=== PATIENT | female | born 1985 | race Caucasian/White ===

== ENCOUNTER 2017-04-25 09:56 | Emergency (ER) | payer OTHER ==
[2017-04-25 10:09] VITALS: BP 118/76
--- NOTE | 2017-04-25 10:49 | ED Physician Documentation ---
PD HPI LOWER EXT INJURY - Stated complaint Stated Complaint: FT PX - Chief complaint Chief Complaint: General - History obtained from History obtained from: Patient - History of Present Illness PD HPI LOW EXT INJURY LOCATION: Left, Foot Type of injury: Fall Where injury occurred: Work Timing - onset: Yesterday Timing - duration: Days (1) Timing - details: Abrupt onset, Still present Improved by: Rest, Immobilization Worsened by: Moving, Palpating Associated symptoms: No: Weakness, Numbness, Tingling, Swelling Contributing factors: No: Anticoagulated Similar symptoms before: Has not had sx before Recently seen: Not recently seen - Additional information Additional information: 32-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 She landed on her right foot and has pain over the metatarsals on the right foot. She is able to walk on her heel she was able to sleep last night and states that she had some relief of her pain with the use of ibuprofen. Review of Systems Constitutional: denies: Fever Eyes: denies: Decreased vision Ears: denies: Ear pain Nose: denies: Congestion Respiratory: denies: Cough GI: denies: Vomiting Skin: denies: Rash Musculoskeletal: reports: Extremity pain, Joint pain, Pain with weight bearing. denies: Neck pain, Back pain Neurologic: denies: Generalized weakness, Focal weakness, Numbness PD PAST MEDICAL HISTORY - Past Medical History Past Medical History: No - Past Surgical History Past Surgical History: Yes - Allergies Allergies/Adverse Reactions: Allergies Allergy/AdvReac Type Severity Reaction Status Date / Time No Known Drug Allergies Allergy Verified 04/25/17 10:08 - Social History Does the pt smoke?: No Smoking Status: Never smoker Does the pt drink ETOH?: Yes Does the pt have substance abuse?: No - Immunizations Immunizations are current?: Yes - POLST Patient has POLST: No PD ED PE NORMAL - Vitals Vital signs reviewed: Yes (normal ) - General General: No acute distress, Well developed/nourished - HEENT HEENT: Atraumatic, PERRL - Respiratory Respiratory: No respiratory distress - Derm Derm: Normal color, Warm and dry, No rash - Extremities Extremities: No deformity, No edema, Other (There is tenderness to the dorsal surface of the left foot over the 1st and 2nd MT distal N/v intact. ) - Neuro Neuro: No motor deficit, No sensory deficit - Psych Psych: Normal mood, Normal affect Results - Vitals Vitals: Vital Signs - 24 hr 04/25/17 10:03 Temperature 36.6 C Heart Rate 60 Respiratory 16 Rate Blood Pressure 118/76 O2 Saturation 100 Oxygen O2 Source Room air - Rads (name of study) Left foot Radiology: Prelim report reviewed (Impression: Negative foot radiography.), EMP read indepedently, See rad report PD MEDICAL DECISION MAKING - ED course Complexity details: reviewed results, re-evaluated patient, considered differential, d/w patient ED course: 32 y/o female with a left foot contusion has no evidence of fracture on x-ray. She will need to be off of her foot for 2-5 days and up to 14 days. Departure - Departure Disposition: 01 Home, Self Care Clinical Impression: Contusion of left foot, initial encounter Qualifiers: Encounter type: initial encounter Qualified Code(s): S90.32XA - Contusion of left foot, initial encounter Instructions: ED Contusion Foot Follow-Up: [facility] [Provider Group] Forms: Activity restrictions Discharge Date/Time: 04/25/17 11:05
--- NOTE | 2017-04-25 10:58 | XRAY Preliminary Report ---
Exam: XR Foot 3 View LT IMPRESSION: Negative foot radiography. [facility] SITE ID: [id number]
--- NOTE | 2017-04-25 11:00 | XRAY Report ---
EXAM: LEFT FOOT RADIOGRAPHY EXAM DATE: 04/25/2017 10:29 AM. CLINICAL HISTORY: MT pain contusion . COMPARISON: None. TECHNIQUE: 3 views. FINDINGS: Bones: Normal. No fractures or bone lesions. Joints: Normal. No subluxations. Soft Tissues: Normal. No soft tissue swelling. IMPRESSION: Negative foot radiography. [facility] Referring Provider Line: [phone] SITE ID: [id number]
== END 2017-04-25 11:05 | disposition home or self-care (01) ==
LOC: ED 09:56
DX: S90.32XA Contusion of left foot, initial encounter (principal); X50.1XXA Overexertion from prolonged static or awkward postures, initial encounter; Y99.0 Civilian activity done for income or pay
CPT/HCPCS: 99283

== ENCOUNTER 2017-06-30 15:21 | Emergency (ER) | payer OTHER ==
--- NOTE | 2017-06-30 15:50 | ED Physician Documentation ---
PD HPI ABD PAIN - Stated complaint Stated Complaint: 9WKS PREG/BLEEDING/CRAMPING - Chief complaint Chief Complaint: Abd Pain - History obtained from History obtained from: Patient, Family - History of Present Illness Timing - onset: Other ( at 9 weeks with unknown blood type presents with light cramping and bleeding since yesterday.) Review of Systems Constitutional: reports: Reviewed and negative Cardiac: reports: Reviewed and negative Respiratory: reports: Reviewed and negative PD PAST MEDICAL HISTORY - Past Surgical History Past Surgical History: Yes - Present Medications Home Medications: Ambulatory Orders Medication Instructions Recorded Confirmed No Known Home Medications [No 06/30/17 06/30/17 Known Home Medications] - Allergies Allergies/Adverse Reactions: Allergies Allergy/AdvReac Type Severity Reaction Status Date / Time No Known Drug Allergies Allergy Verified 06/30/17 15:26 - Social History Does the pt smoke?: No Smoking Status: Never smoker Does the pt drink ETOH?: Yes Does the pt have substance abuse?: No - Immunizations Immunizations are current?: Yes - POLST Patient has POLST: No PD ED PE NORMAL - Vitals Vital signs reviewed: Yes - General General: Alert and oriented X 3, No acute distress - Neck Neck: Supple, no meningeal sign, No bony TTP - Respiratory Respiratory: No respiratory distress, Clear bilaterally - Abdomen Abdomen: Normal bowel sounds, Soft, Non tender - Female Female : Other (bedisde sono with IUP but no FHT) - Neuro Neuro: Alert and oriented X 3, Normal speech - Psych Psych: Normal mood, Normal affect Results - Vitals Vitals: Vital Signs - 24 hr 06/30/17 15:23 Temperature 37.0 C Heart Rate 75 Respiratory 16 Rate Blood Pressure 116/64 O2 Saturation 99 Oxygen O2 Source Room air - Labs Labs: Laboratory Tests 06/30/17 16:05 Blood Type O POSITIVE - Rads (name of study) Pelvic sono Radiology: EMP read contemporaneously (Single IUP with absent cardiac activity) PD MEDICAL DECISION MAKING - ED course ED course: at 9 weeks with apparent intrauterine demise.The patient and family were counseled as to the diagnosis and need for follow-up. I counseled the patient with regard to signs and symptoms that would necessitate an urgent reevaluation in the emergency department. They understand they are welcome to return at any time if worse or if not improving as expected. This document was made in part using voice recognition software. While efforts are made to proofread this documents, sound alike and grammatical errors may occur. Departure - Departure Disposition: 01 Home, Self Care Clinical Impression: IUFD at less than 20 weeks of gestation Condition: Good Record reviewed to determine appropriate education?: Yes Instructions: ED Miscarriage Inevitable Follow-Up: Corie Valentin CNM, LABEL MAKER [Primary Care Provider] - Within 3 Days
--- NOTE | 2017-06-30 17:55 | Ultrasound Preliminary Report ---
Exam: US OB FIRST TRIMESTER IMPRESSION: 1. Single intrauterine 9 weeks 0 day intrauterine gestation with absent cardiac activity indicating f etal demise. [facility] SITE ID: [id number]
--- NOTE | 2017-06-30 17:57 | Ultrasound Report ---
EXAM: FIRST TRIMESTER OBSTETRIC ULTRASOUND (Less than 11 weeks) EXAM DATE: 06/30/2017 05:29 PM. 9CLINICAL HISTORY: Pelvic cramping/bleeding 9w. LMP: Unknown. COMPARISONS: None. TECHNIQUE: Transabdominal and transvaginal ultrasound examination with static image documentation. CLINICAL DATES: EGA 9 weeks 6 days with OSCAR 01/27/2018 based on stated dates. ASSESSMENT: Gestational Sac: Single intrauterine. Mean gestational sac diameter: 42 mm = 9 weeks 5 days. Embryo: CRL (crown-rump length) 23 mm = 9 weeks 0 days. Cardiac activity: 0 beats per minute. Yolk sac: 5.1 mm. Amniotic fluid: Not accurately assessed at this gestational age. Early placenta: Not visible at this gestational age. Other: No perigestational fluid collection demonstrated. MATERNAL STRUCTURES: Uterus: Anteverted. Unremarkable. Cervix: Closed. Right Ovary/Adnexa: Not seen Left Ovary/Adnexa: Contains a 1.7 x 1.0 x 1.5 cm simple cyst. The ovary measures 2.0 x 1.3 x 2.1 cm. Free Fluid: None. Other: None. IMPRESSION: 1. Single intrauterine 9 weeks 0 day intrauterine gestation with absent cardiac activity indicating f etal demise. [facility] Referring Provider Line: [phone] SITE ID: [id number]
[2017-06-30 18:21] LABS: BILIRUBIN,URINE NEGATIVE (NEGATIVE); PH,URINE 6.5 PH (5.0-7.5)
[2017-06-30 18:24] LABS: UA CHARGE (STRIP ONLY) YES; UR CULTURE IF IND NOT INDICATED
[2017-06-30 18:29] VITALS: BP 135/87
== END 2017-06-30 18:12 | disposition home or self-care (01) ==
LOC: ED 15:21
DX: O36.4XX0 Maternal care for intrauterine death, not applicable or unspecified (principal); Z3A.09 9 weeks gestation of pregnancy
CPT/HCPCS: 36415; 76801; 76817; 80053; 81001; 81003; 83690; 84702; 85025; 86900; 86901; 87086; 99283

== ENCOUNTER 2017-10-21 08:20 | Emergency (ER) | payer OTHER ==
[2017-10-21 08:28] VITALS: BP 136/72
--- NOTE | 2017-10-21 08:39 | ED Physician Documentation ---
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 She has some swelling over the bridge of the nose she had some bleeding associated with this which rapidly resolved and she has no other specific symptoms now. She does not have any significant cosmetic deformity with the swelling. She did not have any loss of consciousness. Review of Systems Constitutional: denies: Fever Eyes: denies: Decreased vision Ears: denies: Ear pain Nose: reports: Epistaxis, Sinus pressure / pain. denies: Rhinorrhea / runny nose, Congestion Throat: denies: Sore throat Respiratory: denies: Dyspnea, Cough GI: denies: Nausea, Vomiting PD PAST MEDICAL HISTORY - Past Surgical History Past Surgical History: Yes - Present Medications Home Medications: Ambulatory Orders Medication Instructions Recorded Confirmed No Known Home Medications [No 06/30/17 10/21/17 Known Home Medications] - Allergies Allergies/Adverse Reactions: Allergies Allergy/AdvReac Type Severity Reaction Status Date / Time No Known Drug Allergies Allergy Verified 10/21/17 08:27 - Social History Does the pt smoke?: No Smoking Status: Never smoker Does the pt drink ETOH?: Yes Does the pt have substance abuse?: No - Immunizations Immunizations are current?: Yes - POLST Patient has POLST: No PD ED PE NORMAL - Vitals Vital signs reviewed: Yes (normal ) - General General: Alert and oriented X 3, No acute distress, Well developed/nourished - HEENT HEENT: PERRL, EOMI, Other (There is a tiny red bump over the nasal bridge and some swelling to the nasal bridge. There is no epistaxis and no midline deviation. 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, No motor deficit, No sensory deficit, Normal speech Eye Opening: Spontaneous Motor: Obeys Commands Verbal: Oriented GCS Score: 15 - Psych Psych: Normal mood, Normal affect Results - Vitals Vitals: Vital Signs - 24 hr 10/21/17 08:23 Temperature 36.9 C Heart Rate 71 Respiratory 16 Rate Blood Pressure 136/72 H O2 Saturation 99 Oxygen O2 Source Room air PD MEDICAL DECISION MAKING - ED course Complexity details: considered differential, d/w patient, d/w family ED course: 32-year-old female with a nasal bridge contusion without significant deformity is given instructions to return for imaging should she have cosmetic deformity when the swelling is resolved. Departure - Departure Disposition: 01 Home, Self Care Clinical Impression: Contusion of nose, initial encounter Condition: Stable Instructions: ED Contusion Nasal Vs Fx No X Ray Follow-Up: Corie Valentin, AUBREY, [employer]IST [employer]PPLIES SALESPERSON [Primary Care Provider] -
== END 2017-10-21 09:15 | disposition home or self-care (01) ==
LOC: ED 08:20
DX: S00.33XA Contusion of nose, initial encounter (principal); W01.198A Fall on same level from slipping, tripping and stumbling with subsequent striking against other object, initial encounter; Y93.01 Activity, walking, marching and hiking; Y99.0 Civilian activity done for income or pay
CPT/HCPCS: 1040M; 99282

== ENCOUNTER 2018-01-14 12:00 | Outpatient (CLI) | payer OTHER | END 2018-01-14 12:01 | disposition home or self-care (01) | LOC: LAB.R 12:00 | PROVIDERS: ATTEND Registered Nurse | DX: Z36.9 Encounter for antenatal screening, unspecified (principal) | CPT/HCPCS: 87491; 87591 ==

== ENCOUNTER 2018-02-06 08:00 | Outpatient (CLI) | payer OTHER | END 2018-02-06 08:01 | disposition home or self-care (01) | LOC: LAB.R 08:00 | PROVIDERS: ATTEND Registered Nurse | DX: R31.9 Hematuria, unspecified (principal) | CPT/HCPCS: 87086 ==

== ENCOUNTER 2018-03-08 09:52 | Outpatient (CLI) | payer SELFPAY | END 2018-03-08 09:53 | disposition home or self-care (01) | LOC: LAB 09:52 | PROVIDERS: ATTEND Registered Nurse | DX: Z13.79 Encounter for other screening for genetic and chromosomal anomalies (principal) | CPT/HCPCS: 36415 ==

== ENCOUNTER 2018-05-02 12:47 | Outpatient (CLI) | payer OTHER ==
--- NOTE | 2018-05-02 15:39 | Ultrasound Report ---
Reason: ENCOUNTER FOR SCREENING FOR MALFORMATION Procedure Date: 05/02/2018 Accession Number: [id number] / [id number] Procedure: US - OB Detailed Eval CPT Code: FULL RESULT: EXAM: COMPLETE OBSTETRICAL ULTRASOUND EXAM DATE: 05/02/2018 02:59 PM. CLINICAL HISTORY: anatomic survey. COMPARISON: None. TECHNIQUE: Real-time sonographic evaluation of the fetus performed by the yellow pages space salesperson. Multiple retail account representative static images were saved for review. DATING: LMP: Unsure. EGA 23 weeks, 1 day with OSCAR 08/28/2018 based on the current ultrasound. GENERAL EVALUATION [place] . Cardiac activity: 148 bpm. movement: Within normal limits. Presentation: Variable. Placenta: Anterior position. No evidence for previa. Umbilical cord: 3 vessel cord. Placental/cervix: Normal. Cord origin: Central (greater or equal to 2 cm from placental edge). Amniotic fluid: Subjectively normal. MVP 5.8 cm. BIOMETRY Bi-Parietal Diameter (BPD): 5.6 cm, 23 weeks, 0 days Head Circumference (HC): 21.2 cm, 23 weeks, 2 days Abdominal Circumference (AC): 18. cm, 23 weeks, 1 day Femur Length (FL): 4.1 cm, 23 weeks, 2 days Estimated Weight: 574 gm. ANATOMY Left ventricular echogenic foci are identified within the heart. The cardiac anatomy including outflow tracts is otherwise normal. The intracranial structures, profile, face/nose/lips, spine, stomach, abdominal wall and cord insertion, diaphragm, kidneys, bladder, and extremities were visualized and demonstrate no abnormality. MATERNAL STRUCTURES Uterus: Unremarkable. Cervix: Long and closed. Transabdominal length 5.8 cm. Right ovary/adnexa: Unremarkable. Left ovary/adnexa: Unremarkable. Free fluid: None. IMPRESSION: 1. [place] live intrauterine with gestational age 23 weeks 1 day based on current ultrasound. 2. One or more soft markers for aneuploidy is detected. Recommend correlation with maternal age, ethnicity, and aneuploidy risk assessment results such as serum screening or cell free DNA testing to help guide further management. [facility]
== END 2018-05-02 12:48 | disposition home or self-care (01) ==
LOC: DI 12:47
PROVIDERS: ATTEND Registered Nurse
DX: Z36.3 Encounter for antenatal screening for malformations (principal)
CPT/HCPCS: 76811

== ENCOUNTER 2018-06-14 12:31 | Outpatient (CLI) | payer OTHER ==
[2018-06-14 13:51] LABS: BASOPHILS % (AUTO) 0.3 %; EOSINOPHILS # (AUTO) 0.2 10^3/uL (0.0-0.7); EOSINOPHILS % (AUTO) 1.6 %; HGB - HEMOGLOBIN 11.4 g/dL (12.0-16.0); LYMPHOCYTES # (AUTO) 1.2 10^3/uL (1.5-3.5); LYMPHOCYTES % (AUTO) 9.5 %; MEAN CORPUSCULAR HEMOGLOBIN 31.3 pg (27.0-31.0); MEAN CORPUSCULAR HGB CONC 34.5 g/dL (32.0-36.0); MEAN CORPUSCULAR VOLUME 90.8 fL (81.0-99.0); MEAN PLATELET VOLUME 9.1 fL (7.9-10.8); MONOCYTES # (AUTO) 0.9 10^3/uL (0.0-1.0); NEUTROPHILS # (AUTO) 10.2 10^3/uL (1.5-6.6); NEUTROPHILS % (AUTO) 81.6 %; PLT - PLATELET COUNT 154 10^3/uL (130-450); RED BLOOD COUNT 3.64 10^6/uL (4.20-5.40); RED CELL DISTRIBUTION WIDTH 12.7 % (12.0-15.0); WHITE BLOOD COUNT 12.5 x10^3/uL (4.8-10.8)
== END 2018-06-14 12:32 | disposition home or self-care (01) ==
LOC: LAB 12:31
PROVIDERS: ATTEND Registered Nurse
DX: Z34.82 Encounter for supervision of other normal pregnancy, second trimester (principal)
CPT/HCPCS: 36415; 82950; 85025; 86850

== ENCOUNTER 2018-08-12 15:59 | Outpatient (CLI) | payer OTHER | END 2018-08-12 23:59 | disposition home or self-care (01) | LOC: LAB.R 15:59 | PROVIDERS: ATTEND Nurse Practitioner Obstetrics & Gynecology | DX: Z36.85 Encounter for antenatal screening for Streptococcus B (principal); Z11.3 Encounter for screening for infections with a predominantly sexual mode of transmission | CPT/HCPCS: 87081; 87491; 87591 ==

== ENCOUNTER 2018-08-19 14:48 | Outpatient (CLI) | payer OTHER ==
[2018-08-19 15:03] VITALS: BP 122/69
== END 2018-08-19 15:25 | disposition home or self-care (01) ==
LOC: WFO 14:48 → FBP 14:51 → WFO 15:25
PROVIDERS: ATTEND Nurse Practitioner Obstetrics & Gynecology
DX: O36.8130 Decreased fetal movements, third trimester, not applicable or unspecified (principal); Z3A.37 37 weeks gestation of pregnancy
CPT/HCPCS: 59025

== ENCOUNTER 2018-08-29 03:19 | Inpatient (IN) | payer OTHER ==
[2018-08-29] MEDS ORDERED: SODIUM CHLORIDE FLUSH 0.9% 10 ML SYRINGE ONE (03:34)
[2018-08-29] MEDS ORDERED: OXYTOCIN/SODIUM CHLORIDE 500 ML IV ONE (03:35)
[2018-08-29] MEDS ORDERED: SODIUM CHLORIDE FLUSH 0.9% 10 ML SYRINGE IVP PRN (03:47)
[2018-08-29] MEDS ORDERED: LACTATED RINGERS 1,000 ML IV SCH (04:00)
[2018-08-29 04:32] LABS: BASOPHILS # (AUTO) 0.1 10^3/uL (0.0-0.1); BASOPHILS % (AUTO) 0.6 %; EOSINOPHILS # (AUTO) 0.1 10^3/uL (0.0-0.7); EOSINOPHILS % (AUTO) 0.6 %; HGB - HEMOGLOBIN 11.3 g/dL (12.0-16.0); LYMPHOCYTES # (AUTO) 2.6 10^3/uL (1.5-3.5); LYMPHOCYTES % (AUTO) 21.8 %; MEAN CORPUSCULAR HEMOGLOBIN 28.8 pg (27.0-31.0); MEAN CORPUSCULAR VOLUME 84.7 fL (81.0-99.0); MEAN PLATELET VOLUME 10.7 fL (7.9-10.8); MONOCYTES # (AUTO) 0.9 10^3/uL (0.0-1.0); MONOCYTES % (AUTO) 7.6 %; NEUTROPHILS # (AUTO) 8.1 10^3/uL (1.5-6.6); NEUTROPHILS % (AUTO) 69.4 %; PLT - PLATELET COUNT 161 10^3/uL (130-450); RED BLOOD COUNT 3.91 10^6/uL (4.20-5.40); RED CELL DISTRIBUTION WIDTH 13.6 % (12.0-15.0); WHITE BLOOD COUNT 11.7 x10^3/uL (4.8-10.8)
--- NOTE | 2018-08-29 04:45 | HISTORY & PHYSICAL EXAMINATION ---
Admit History - Visit Reason Visit Reason: Contractions (starting @ 2300, progressively strong since 0200) - : 4 Parity: 2 Premature: 0 Ectopic: 0 : 1 Care: positive: [facility] Risk/History: positive: None Complications This : positive: None Smoking Status: Never smoker - Mother's Labs Mother's Blood Type: positive: O Mother's RH: positive: Positive GBS: positive: Group B Step Negative Rubella Status: positive: Immune Meds/Allgy - Home Medications Home Medications: Ambulatory Orders Medication Instructions Recorded Confirmed No Known Home Medications 06/30/17 10/21/17 - Allergies Allergies/Adverse Reactions: Allergies Allergy/AdvReac Type Severity Reaction Status Date / Time No Known Drug Allergies Allergy Verified 10/21/17 08:27 Review of Systems - Constitutional Constitutional: denies: Fatigue, Fever, Chills - Eyes Eyes: denies: Blurred vision - Cardiovascular Cariovascular: denies: Irregular heart rate, Palpitations, Chest pain - Respiratory Respiratory: denies: Cough - Gastrointestinal Gastrointestinal: reports: Abdominal pain, Reflux/heartburn. denies: Constipation, Diarrhea, Nausea, Vomiting - Genitourinary Genitourinary: reports: Frequency. denies: Dysuria, Urgency - Musculoskeletal Musculoskeletal: denies: Muscle pain, Back pain, Muscle aches, Stiffness - Integumentary Integumentary: denies: Rash, Pruritis, Lesions - Neurological Neurological: denies: General weakness, Focal weakness, Headache, Numbness - Psychiatric Psychiatric: denies: Depression, Anxiety - All Other Systems All Other Systems: reports: Reviewed and negative Physical - Abdominal Exam Vital Signs: Temp Pulse Resp BP Pulse Ox 36.3 C L 60 120/63 08/29/18 03:35 08/29/18 03:54 08/29/18 03:54 Contraction Frequency (min/apart): 2 Contraction Intensity: positive: Strong Uterine Resting Tone: positive: Soft - Monitoring Heart Rate Baseline: 135 Strip Review: positive: Category I - Presentation Presentation: positive: Vertex - Vaginal Exam Membranes: positive: Membranes ruptured (@ 0350 for CAF) Dilation (in cm): 10 Effacement (%): 100 Station: positive: 2 Cervical Position: positive: Anterior - Speculum Exam Speculum Exam Performed: positive: No Findings: positive: Gross leak - Other Notes Labor Progress Note/Additional Text: Jamie Sommer is a 33 y/o who received consistent care beginning in the early 1st trimester & had an essentially uncomplicated course. Her labs were all WNL & she screened negative for GBS. She presented this evening w/ a complaint of contractions & was 5cm on arrival. She SROMed shortly after evaluation @ 0350 & progressed rapidly to complete dilatation over the course of 30 minutes. See delivery note for details. 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
[2018-08-29] MEDS ORDERED: HYDROCORTISONE/PRAMOXINE 10 GM PR PRN (04:57)
[2018-08-29] MEDS ORDERED: MAGNESIUM HYDROXIDE 2,400 MG/30 ML UDC PO PRN (04:57)
[2018-08-29] MEDS ORDERED: WITCH HAZEL/GLYCERIN 1 EACH MED..PAD TOP PRN (04:57)
[2018-08-29] MEDS ORDERED: HYDROCORTISONE 1% CREAM 28 GM TUBE PR PRN (04:57)
--- NOTE | 2018-08-29 04:57 | DELIVERY NOTE ---
Delivery Note - Labor Labor: positive: Spontaneous - Delivery Method Delivery Method: positive: Spontaneous vaginal delivery - Presentation Presentation: positive: Vertex, MICHELLE - right occiput anterior - Nuchal Cord Nuchal Cord: positive: None - Anesthetic Anesthetic Type: - Amniotic Fluid Description Amniotic Fluid Description: positive: Clear - Episiotomy Type Episiotomy Type: positive: None - Laceration Laceration: positive: None - Delivery Outcome Delivery Outcome: positive: Livebirth - [place] : positive: Placed in direct skin contact with mother, Stimulated, Warmed, [place] used [place] sex: positive: Male - Cord Cord: positive: 3 vessels - Placenta Placenta: positive: Intact, Spontaneous - Estimated Blood Loss Estimated Blood Loss (in cc): 150 - Post Delivery Events Post Delivery Events: positive: No post delivery events - Delivery Comments (Free Text/Narrative) Delivery Comments (Free Text/Narrative): Jamie Sommer is a 33 y/o [id number] who presented @ 39w1d in active, spontaneous labor @ 5cm dilatation. She SROM'ed for CAF 5 minutes s/p arrival, @ 0350 and progressed spontaneously from there to complete dilatation w/ spontaneous urge to push @ 0420, for a total first stage duration of 5 hours, 20 minutes. FHTs monitored electronically & consistently cat I. Began pushing w/ spontaneous u rge @ 0422 to achieve viable male in MICHELLE position over intact perineum @ 0427, for a total 2nd stage duration of 7 minutes. Infant vigorous w/ spontaneous, lusty cry. Placed to maternal abd for drying/stim. Delayed cord clamping until cessation of pulsation, then cord clamped x2 by CNM, cut by FOB. 3VC noted, cord blood obtained. Active management of the 3rd stage w/ Pitocin in IV fluids. Placenta del spont & intact, Tramaine, @ 0433, for a total 3rd stage duration of 6 minutes. FF @ U. Vagina & perineum inspected & found to be intact. EBL 150mL. Mother & stable. Apgars 9/9. Weight pending. nuzzling @ breast w/in 15 minutes of delivery; intends to breastfeed & has had 2 previously successful experiences.
[2018-08-29] MEDS: IBUPROFEN 800 MG TABLET PO SCH ×3 (06:28→17:31)
[2018-08-29] MEDS: ACETAMINOPHEN 500 MG TABLET PO SCH ×3 (06:29→20:18)
[2018-08-29] MEDS ORDERED: SODIUM CHLORIDE FLUSH 0.9% 10 ML SYRINGE IVP SCH (09:00)
[2018-08-29] MEDS: DOCUSATE SODIUM 100 MG CAPSULE PO SCH ×2 (10:14→20:18)
[2018-08-30] MEDS: IBUPROFEN 800 MG TABLET PO SCH ×3 (00:27→13:59)
[2018-08-30] MEDS: ACETAMINOPHEN 500 MG TABLET PO SCH ×2 (04:17→13:59)
--- NOTE | 2018-08-30 08:37 | Discharge Plan ---
Discharge Plan Disposition: 01 Home, Self Care Condition: Good Diet: Regular Activity Restrictions: pelvic rest x6 weeks Shower Restrictions: No Driving Restrictions: No Weight Bearing: Full Weight Instruction Topics: Vaginal After, Breastfeed How To, Exercises Kegel Additional Instructions or Follow Up instructions: x1 week with Corie Valentin CNM, jose luis PRN x3 weeks x8 weeks No Smoking: If you smoke, Please STOP! Call for help. Follow-up with: Corie Valentin CNM, THERMO PROCESSOR [Provider Admit Priv/Credential] -
--- NOTE | 2018-08-30 08:40 | DISCHARGE SUMMARY ---
"Discharge Summary Admit Date: 08/29/18 Discharge Date: 08/30/18 Discharging Provider: luan Code Status: Attempt Resuscitation Condition at Discharge: Good Discharge Disposition: 01 Home, Self Care Discharge Facility Name: [facility] - DIAGNOSES Admission Diagnoses: 39 weeks' gestation active labor @ term Discharge Diagnoses with Status of Each Condition: - HPI History of Present Illness: Kimberly Sommer is a 33 y/o [id number] who presented in spontaneous active labor @ 5cm dilatation & experienced SROM for CAF. She progressed w/o intervention or medication to viable male over intact perineum w/o complication. - CONSULTS | PROCEDURES Procedures: - HOSPITAL COURSE Hospital Course: , Kimberly is ambulating & voiding w/o difficulty or discomfort. She is passing flatus & tolerating a vegetarian diet. She is exclusively w/o difficulty. She reports adequate pain control w/ non-opioid analgesia. She reports minimal lochia rubra. She is planning 12 weeks' pp leave & her partner will have 2 weeks of leave to assist her at home. She reports 2 previously successful experiences & denies hx of pp depression. She is able to fully articulate pp warning s/sx, including pp depression s/sx, and pp aftercare instructions. She is ready to leave the hospital. - ALLERGIES Allergies/Adverse Reactions: Allergies Allergy/AdvReac Type Severity Reaction Status Date / Time No Known Drug Allergies Allergy Verified 10/21/17 08:27 - MEDICATIONS Home Medications: Ambulatory Orders Medication Instructions Recorded Confirmed Ibuprofen [Motrin] 800 mg PO Q6H tablet 08/30/18 Witch Rosette/Glycerin [Tucks] 1 each TOP QID PRN med..pad 08/30/18 - PHYSICAL EXAM AT DISCHARGE General Appearance: positive: No acute distress, Alert Eyes Bilateral: positive: Normal inspection Respiratory: positive: Chest non-tender, No respiratory distress, Breath sounds nml Cardiovascular: positive: Regular rate & rhythm, No murmur, No gallop Abdomen: positive: Non-tender, No distention, Other (FFU-1) Back: positive: Nml inspection Skin: positive: Color nml, No rash, Warm, Dry Extremities: positive: Non-tender, Full ROM, Nml appearance, No pedal edema. negative: Calf tenderness, Leelee's sign/cords Neurologic/Psychiatric: positive: Oriented x3, CN's nml (2-12), Motor nml, Sensation nml, Mood/affect nml Physical Exam Other/Comments: breast b/l s, nt; nipples b/l intact & everted; colostrum readily expressible; perineum intact, no erythema/edema/ecchymosis, minimal lochia rubra - LABS Result Diagrams: 08/29/18 04:00 - FOLLOW UP Follow Up: x 1 week w/ Coire Valentin CNM, earlier PRN - TIME SPENT Time Spent in Discharge (Minutes): 20"
[2018-08-30] MEDS: DOCUSATE SODIUM 100 MG CAPSULE PO SCH (10:29)
[2018-08-30 12:33] VITALS: BP 114/62
--- NOTE | 2018-08-30 14:02 | Labor Flowsheet ---
Labor Flowsheet Datetime Report Generated by CPN: 08/30/2018 14:02 Datetime: 08/30/2018 12:30 VITAL SIGNS NBP Sys/Wendy/Mean (mmHg): 114 : 62 : 72 Pulse: 76 Datetime: 08/29/2018 16:48 SpO2 (%): 99 Datetime: 08/29/2018 04:32 Respirations: 20 Temperature (C): 36.9 Datetime: 08/29/2018 04:28 Stage of : Recovery Datetime: 08/29/2018 04:22 STAGE 2 Pushing: Involuntary Pushing Pushing Position: Pushing with Contractions Pushing Progress: Descent with Pushing Datetime: 08/29/2018 04:21 Comments: EFM discontinued per provider Datetime: 08/29/2018 04:18 VAGINAL EXAM Dilatation (cm): 10.0 Effacement (%): 100 Station: 2 Exam by: M. Milagrossa Vaginal Bleeding: Normal Show Cervix, Consistency: Soft Cervix, Position: Anterior COMMUNICATION Communication: Provider at Bedside Datetime: 08/29/2018 04:14 ASSESSMENT A Monitor Mode: External US FHR Baseline Rate : 135 Variability: Moderate 6-25 bpm Accelerations: 15X15 Decelerations: Variable Category: Category II Datetime: 08/29/2018 04:12 Membrane Status: Ruptured Membranes Ruptured Date/Time: 08/29/2018 04:12 Datetime: 08/29/2018 04:08 PATIENT CARE IV/Blood Work: IV Started; Labs Drawn with IV Start Datetime: 08/29/2018 04:00 UTERINE ACTIVITY Monitor Mode: External Frequency (min): 2-3 Quality: Strong Duration (sec): 90-120 Pattern: Normal: <= 5 Contractions in 10 Minutes Resting Tone (Palpate): Relaxed
== END 2018-08-30 13:30 | disposition home or self-care (01) | DRG 807 ==
LOC: WFO 03:19 → FBP 03:20 → WFO 03:29 → FBP 03:30
PROVIDERS: ADMIT Registered Nurse; ATTEND Registered Nurse
PROC: 10E0XZZ Delivery of Products of Conception, External Approach (ICD-10-PCS; principal; 2018-08-29)
DX: O80 Encounter for full-term uncomplicated delivery (principal); Z37.0 Single live birth; Z3A.39 39 weeks gestation of pregnancy
CPT/HCPCS: 85025

== ENCOUNTER 2018-11-11 09:43 | Outpatient (CLI) | payer OTHER ==
--- NOTE | 2018-11-11 16:18 | Mammography Report ---
Reason: BREAST LUMP Procedure Date: 11/11/2018 Accession Number: [id number] / [id number] Procedure: NAKIA - Diagnostic Dig Bilat CPT Code: FULL RESULT: EXAM: Diagnostic Dig Bilat DATE: 11/11/2018 11:29 AM CLINICAL HISTORY: No reported personal or family history of breast cancer. Currently lactating with PCP palpated lump or fullness upper outer left breast; patient unable to palpate today. TECHNIQUE: Bilateral CC and MLO views were obtained. Real-time ultrasound was performed by both the technologist and the radiologist in the left breast. COMPARISON: None FINDINGS: The breasts demonstrate extremely dense parenchyma bilaterally with lactational changes, limiting the sensitivity of mammography. Left breast: There is no mammographic finding of concern in the upper outer quadrant of the left breast at site of PCP palpated lump. On the lateral radiograph only, there is a incompletely included 14 mm convexity along the posterior margin of the image which resembles the leading margin of an oval mass. This is best seen on 3-D images reference slice 45, and triangulates to the retroareolar or medial breast based on the slice orientation. Attempts to image this finding in the orthogonal plane with both medial and lateral exaggerated CC views are unsuccessful. There are no suspicious calcifications or areas of distortion. Real-time ultrasound of the entire upper outer quadrant is performed by both the technologist and the radiologist. No sonographic abnormalities demonstrated in the region of PCP palpated concern. Curtain Supervisor normal images were obtained from 2:00, 6 cm from the nipple. Ultrasound of the lateral posterior breast retroareolar breast and portions of the lateral breast were imaged by the radiologist. No sonographic finding to correlate to the one view mammographic finding. Curtain Supervisor normal images were obtained from the 9:00, 10 cm from the nipple. Right breast: There are no suspicious masses, calcifications or areas of distortion. IMPRESSION: Left breast: 1. No imaging abnormality in the region of the PCP palpated concern upper outer left breast. Negative. BI-RADS Category 1. Clinical follow-up for palpable finding is recommended. 2. 14 mm one view finding posterior margin of the image seen only on lateral projections and without ultrasound correlate. . Cannot exclude summation of the dense lactational tissue producing artifact. Probably benign. BI-RADS Category 3. Six-month follow-up diagnostic mammogram is recommended. Right breast: Negative. BI-RADS Category 1. Recommend annual screening mammography. RECOMMENDATION: 6 month follow-up diagnostic mammogram left breast. BI-RADS CATEGORY 3: Probably benign. STANDARD QUALIFYING STATEMENTS: 1. This examination was not reviewed with the aid of Computer-Aided Detection (CAD). 2. A negative or benign imaging report should not preclude biopsy if clinically suspicious findings are present. 3. Dense breasts may obscure an underlying neoplasm. 4. This examination was reviewed with the aid of 3D breast imaging (tomosynthesis).
== END 2018-11-11 09:44 | disposition home or self-care (01) ==
LOC: DI 09:43
PROVIDERS: ATTEND Registered Nurse
DX: N63.0 Unspecified lump in unspecified breast (principal)
CPT/HCPCS: 76642; 77066

== ENCOUNTER 2019-07-09 07:00 | Outpatient (CLI) | payer OTHER ==
[2019-07-09 19:09] LABS: BASOPHILS # (AUTO) 0.1 10^3/uL (0.0-0.1); BASOPHILS % (AUTO) 1.2 %; EOSINOPHILS # (AUTO) 0.4 10^3/uL (0.0-0.7); EOSINOPHILS % (AUTO) 5.2 %; HGB - HEMOGLOBIN 12.7 g/dL (12.0-16.0); LYMPHOCYTES # (AUTO) 2.1 10^3/uL (1.5-3.5); LYMPHOCYTES % (AUTO) 27.5 %; MEAN CORPUSCULAR HEMOGLOBIN 29.4 pg (27.0-31.0); MEAN CORPUSCULAR HGB CONC 31.6 g/dL (32.0-36.0); MEAN CORPUSCULAR VOLUME 93.1 fL (81.0-99.0); MONOCYTES # (AUTO) 0.7 10^3/uL (0.0-1.0); MONOCYTES % (AUTO) 8.6 %; NEUTROPHILS # (AUTO) 4.4 10^3/uL (1.5-6.6); NEUTROPHILS % (AUTO) 57.1 %; PLT - PLATELET COUNT 230 10^3/uL (130-450); RED BLOOD COUNT 4.32 10^6/uL (4.20-5.40); WHITE BLOOD COUNT 7.7 x10^3/uL (4.8-10.8)
[2019-07-09 19:44] LABS: ALBUMIN 4.2 g/dL (3.2-5.5); ALBUMIN/GLOBULIN RATIO 1.6 (1.0-2.2); BILIRUBIN,TOTAL 0.4 mg/dL (0.2-1.0); CALCIUM 9.2 mg/dL (8.5-10.3); CREATININE 0.6 mg/dL (0.4-1.0); TOTAL PROTEIN 6.9 g/dL (6.7-8.2)
== END 2019-07-09 23:59 | disposition home or self-care (01) ==
LOC: LAB.WCP 07:00
PROVIDERS: ATTEND Nurse Practitioner Family
DX: R00.0 Tachycardia, unspecified (principal)
CPT/HCPCS: 36415; 80053; 84443; 85025

== ENCOUNTER 2019-09-23 09:14 | Outpatient (CLI) | payer OTHER ==
--- NOTE | 2019-09-23 13:26 | Mammography Report ---
Reason: 6 MO F/U - LT BREAST LUMP Procedure Date: 09/23/2019 Accession Number: [id number] / [id number] Procedure: NAKIA - Diagnostic Dig LT CPT Code: Final Report FULL RESULT: EXAM: Diagnostic Dig LT DATE: 09/23/2019 10:42 AM CLINICAL HISTORY: Follow-up abnormal mammogram 11/11/2018 demonstrating a one view 14 mm posterior asymmetry without ultrasound correlate, possible summation shadow. TECHNIQUE: (L) - Left CC and MLO views were obtained. COMPARISON: 11/11/2018 PARENCHYMAL PATTERN: (VD) - The breasts demonstrate extremely dense parenchyma bilaterally, limiting the sensitivity of mammography. FINDINGS: No significant interval change. Seen only on the lateral radiograph is a small area of far posterior asymmetric density unchanged compared with 11/11/2018 and not appreciated on the CC projection. There are no new suspicious masses, calcifications, or areas of distortion. IMPRESSION: Benign left breast BI-RADS 2 RECOMMENDATION: (ANNUAL) - Recommend routine annual screening mammography beginning at age 40. Suggest one additional follow-up bilateral mammogram in 6 months. BI-RADS CATEGORY: (2) - Benign Findings. STANDARD QUALIFYING STATEMENTS: 1. This examination was not reviewed with the aid of Computer-Aided Detection (CAD). 2. A negative or benign imaging report should not preclude biopsy if clinically suspicious findings are present. 3. Dense breasts may obscure an underlying neoplasm. 4. This examination was reviewed with the aid of 3D breast imaging (tomosynthesis).
== END 2019-09-23 09:15 | disposition home or self-care (01) ==
LOC: DI 09:14
PROVIDERS: ATTEND Nurse Practitioner Family
DX: N63.20 Unspecified lump in the left breast, unspecified quadrant (principal)

== ENCOUNTER 2020-05-18 12:52 | Emergency (ER) | payer OTHER ==
[2020-05-18 14:20] LABS: BASOPHILS # (AUTO) 0.1 10^3/uL (0.0-0.1); BASOPHILS % (AUTO) 0.8 %; EOSINOPHILS # (AUTO) 0.1 10^3/uL (0.0-0.7); HGB - HEMOGLOBIN 12.9 g/dL (12.0-16.0); LYMPHOCYTES % (AUTO) 26.6 %; MEAN CORPUSCULAR HEMOGLOBIN 30.4 pg (27.0-31.0); MEAN CORPUSCULAR HGB CONC 33.2 g/dL (32.0-36.0); MEAN CORPUSCULAR VOLUME 91.7 fL (81.0-99.0); MONOCYTES # (AUTO) 0.6 10^3/uL (0.0-1.0); MONOCYTES % (AUTO) 8.3 %; NEUTROPHILS # (AUTO) 4.6 10^3/uL (1.5-6.6); PLT - PLATELET COUNT 212 10^3/uL (130-450); RED BLOOD COUNT 4.24 10^6/uL (4.20-5.40); RED CELL DISTRIBUTION WIDTH 13.5 % (12.0-15.0); WHITE BLOOD COUNT 7.4 x10^3/uL (4.8-10.8)
[2020-05-18 14:31] LABS: ALBUMIN 4.4 g/dL (3.2-5.5); ALBUMIN/GLOBULIN RATIO 1.5 (1.0-2.2); CALCIUM 9.3 mg/dL (8.5-10.3); CREATININE 0.6 mg/dL (0.4-1.0); TOTAL PROTEIN 7.3 g/dL (6.7-8.2)
[2020-05-18 16:20] LABS: BILIRUBIN,URINE NEGATIVE (NEGATIVE); GLUCOSE, URINE (UA) NEGATIVE (NEGATIVE); KETONES,URINE (UA) TRACE mg/dL (NEGATIVE); LEUKOCYTE ESTERASE, URINE NEGATIVE (NEGATIVE); NITRITE,URINE NEGATIVE (NEGATIVE); OCCULT BLOOD,URINE MODERATE (NEGATIVE); PH,URINE 5.5 PH (5.0-7.5); PROTEIN,URINE NEGATIVE (NEGATIVE); UROBILINOGEN,URINE 0.2 (NORMAL) E.U./dL (NORMAL)
[2020-05-18 16:23] LABS: CLARITY,URINE CLEAR (CLEAR); HCG UR QUAL NEGATIVE
[2020-05-18 16:41] LABS: BACTERIA,URINE None Seen /HPF (None Seen); RBC,URINE 0-5 /HPF (0-5); SQUAMOUS EPITHELIAL CELL,UR FEW Squamous (<= Few)
--- NOTE | 2020-05-18 16:49 | ED Physician Documentation ---
History of Present Illness - Stated complaint Stated Complaint: FEMALE /BLEEDING - Chief complaint Chief Complaint: Abd Pain - History obtained from History obtained from: Patient - Additonal information Additional information: 35-year-old female presents to the emergency department for evaluation of 1 month worth of vaginal bleeding. She reports that she has a copper IUD in place and about 1 month ago she began having bleeding it has gotten steadily heavier since then. She reports that she uses the diva cup and over the last 24 hours she is emptied at 7-8 times. She has no previous history of dysfunctional uterine bleeding. She is hesitant to take hormones because she reports that she is sensitive to them. She is had no cough fevers or dysuria. She does report lower pelvic cramping but no focal abdominal pain. She is sexually active and monogamous with 1 partner. Review of Systems Constitutional: reports: Reviewed and negative Ears: reports: Reviewed and negative Nose: reports: Reviewed and negative Throat: reports: Reviewed and negative Cardiac: reports: Reviewed and negative GI: denies: Abdominal Pain (lowr pelvic cramping), Nausea, Vomiting, Constipation, Diarrhea, Hematemesis : reports: Vaginal bleeding. 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: Miscarriage(s) : None HEENT: None Psych: None Musculoskeletal: None Derm: None - Past Surgical History Past Surgical History: Yes - Present Medications Home Medications: Ambulatory Orders Medication Instructions Recorded Confirmed Ibuprofen [Motrin] 800 mg PO Q6H tablet 08/30/18 Witch Rosette/Glycerin [Tucks] 1 each TOP QID PRN med..pad 08/30/18 - Allergies Allergies/Adverse Reactions: Allergies Allergy/AdvReac Type Severity Reaction Status Date / Time No Known Drug Allergies Allergy Verified 10/21/17 08:27 - Social History Does the pt smoke?: No Smoking Status: Never smoker Does the pt drink ETOH?: Yes ETOH Use: Wine, Beer Does the pt have substance abuse?: No - Immunizations Immunizations are current?: Yes - POLST Patient has POLST: No PD ED PE NORMAL - General General: Alert and oriented X 3, No acute distress, Well developed/nourished - HEENT HEENT: Atraumatic - Neck Neck: Supple, no meningeal sign, No adenopathy - Cardiac Cardiac: RRR, No murmur - Respiratory Respiratory: No respiratory distress, Clear bilaterally - Abdomen Abdomen: Normal bowel sounds, Soft, Non tender (mild lower pelvic ttp; non focal; no rebound or guarding) - Back Back: No CVA TTP, No spinal TTP - Derm Derm: Normal color, Warm and dry, No rash - Extremities Extremities: No deformity, No tenderness to palpate, Normal ROM s pain, No calf tenderness / cord - Neuro Neuro: Alert and oriented X 3 Eye Opening: Spontaneous Motor: Obeys Commands Verbal: Oriented GCS Score: 15 Results - Vitals Vitals: Vital Signs - 24 hr 05/18/20 05/18/20 05/18/20 13:18 15:10 16:26 Temperature 36.8 C 36.5 C 36.3 C L Heart Rate 66 68 62 Respiratory 14 18 16 Rate Blood Pressure 118/80 127/86 H 122/79 O2 Saturation 99 100 100 05/18/20 05/18/20 18:27 19:27 Temperature 36.2 C L 37.0 C Heart Rate 65 76 Respiratory 16 16 Rate Blood Pressure 114/70 118/74 O2 Saturation 99 99 Oxygen O2 Source Room air - Labs Labs: Laboratory Tests 05/18/20 05/18/20 05/18/20 14:10 14:10 16:13 WBC 7.4 RBC 4.24 Hgb 12.9 Hct 38.9 MCV 91.7 MCH 30.4 MCHC 33.2 RDW 13.5 Plt Count 212 MPV 11.0 H Neut # (Auto) 4.6 Lymph # (Auto) 2.0 [place] # (Auto) 0.6 Eos # (Auto) 0.1 Baso # (Auto) 0.1 Absolute Nucleated RBC 0.00 Nucleated RBC % 0.0 Sodium 136 Potassium 3.8 Chloride 102 Carbon Dioxide 25 Anion Gap 9.0 BUN 9 Creatinine 0.6 Estimated GFR (MDRD) 113 Glucose 88 Calcium 9.3 Total Bilirubin 1.0 AST 23 ALT 17 Alkaline Phosphatase 42 Total Protein 7.3 Albumin 4.4 Globulin 2.9 Albumin/Globulin Ratio 1.5 Lipase 25 Urine Color YELLOW Urine Clarity CLEAR Urine pH 5.5 Ur Specific [place] >=1.030 H Urine Protein NEGATIVE Urine Glucose (UA) NEGATIVE Urine Ketones TRACE Urine Occult Blood MODERATE H Urine Nitrite NEGATIVE Urine Bilirubin NEGATIVE Urine Urobilinogen 0.2 (NORMAL) Ur Leukocyte Esterase NEGATIVE Urine RBC 0-5 Urine WBC 0-3 Ur Squamous Epith Cells FEW Squamous Urine Bacteria None Seen Ur Microscopic Review INDICATED Urine Culture Comments NOT INDICATED Urine HCG, Qual 05/18/20 16:13 WBC RBC Hgb Hct MCV MCH MCHC RDW Plt Count MPV Neut # (Auto) Lymph # (Auto) [place] # (Auto) Eos # (Auto) Baso # (Auto) Absolute Nucleated RBC Nucleated RBC % Sodium Potassium Chloride Carbon Dioxide Anion Gap BUN Creatinine Estimated GFR (MDRD) Glucose Calcium Total Bilirubin AST ALT Alkaline Phosphatase Total Protein Albumin Globulin Albumin/Globulin Ratio Lipase Urine Color Urine Clarity Urine pH Ur Specific [place] >=1.030 H Urine Protein Urine Glucose (UA) Urine Ketones Urine Occult Blood Urine Nitrite Urine Bilirubin Urine Urobilinogen Ur Leukocyte Esterase Urine RBC Urine WBC Ur Squamous Epith Cells Urine Bacteria Ur Microscopic Review Urine Culture Comments Urine HCG, Qual NEGATIVE - Rads (name of study) pelvic US Radiology: Final report received (IUD in uterus. Endometrium is normal in thickness. Myometrium has heterogeneous echotexture. No discrete mass. There is a dominant left ovarian cyst. Otherwise normal ovaries. Prominent vessels suggesting pelvic congestion syndrome) PD MEDICAL DECISION MAKING - ED course Complexity details: reviewed results, considered differential, d/w patient ED course: 85-year-old female presents to the emergency department with 1 month worth of vaginal bleeding. She has a copper IUD in place. She has no history of previous dysfunctional uterine bleeding. - Labs are reviewed in full. She is not anemic. Reassuringly during the course of her ED visit she has not been tachycardic or hypotensive. Pelvic ultrasound reveals an IUD in proper position. There are no bleeding fibroids. It does suggest that she may have pelvic congestion syndrome. However patient feels that she is bleeding excessively. At this time we will give her 150 mg of Depo- Provera and have her follow-up closely with OB in office. Patient is to return to the emergency department if she develops fevers, in any lightheadedness or tachycardia or feels that the bleeding is not improving. Departure - Departure Disposition: 01 Home, Self Care Clinical Impression: DUB (dysfunctional uterine bleeding) Condition: Stable Record reviewed to determine appropriate education?: Yes Instructions: ED Bleed Irregular Vaginal Follow-Up: Robert Fernandez MD [Provider Admit Priv/Credential] - Comments: Today the ultrasound shows that your IUD is in normal position. You do have prominent vessels suggesting you may be developing pelvic congestion syndrome. However your hemoglobin is normal today. In order to stop the bleeding we have given you an injection of Depo-Provera. Please call the women's clinic tomorrow to schedule follow-up within the next week. If you develop worsening bleeding, feel faint or lightheaded or have a racing heart then return immediately to the emergency department
--- NOTE | 2020-05-18 18:35 | Ultrasound Report ---
PROCEDURE: Pelvic w/Transvaginal INDICATIONS: copper IUD; vaginal bleeding X 1 month TECHNIQUE: Real-time scanning was performed of the pelvic organs, with image documentation. Additional endovagi nal scanning was necessary due to incomplete visualization of the adnexal and endometrial structures by transabdominal scanning. COMPARISON: None. FINDINGS: Transabdominal scanning: Limited scanning through the kidneys shows no hydronephrosis. No pathologi c free abdominal or pelvic fluid. Endovaginal scanning: Uterus: Uterus is normal in size at 9.4 x 5.4 x 7.2 cm. Myometrium has heterogeneous echotexture. T he endometrium measures 4 mm in combined thickness. There is an IUD in uterus. There is no gross con sistent calcification in cervix. Ovaries: Right ovary measures 3.1 x 2.6 x 2.0 cm. Left ovary measures 3.8 x 3.0 x 3.2 cm. There is a dominant follicle in the left ovary measuring 2.5 cm. Note is made of prominent pelvic vessels, sugg esting pelvic congestion syndrome. IMPRESSION: 1. IUD in uterus. Endometrium is normal in thickness. 2. Myometrium has heterogeneous echotexture. No discrete mass. 3. There is a dominant left ovarian cyst. Otherwise normal ovaries. 4. Prominent vessels suggesting pelvic congestion syndrome. Reviewed by: Brissa Yañez MD on 05/18/2020 6:34 PM PDT Approved by: Brissa Yañez MD on 05/18/2020 6:34 PM PDT Station ID: [id number]
[2020-05-18] MEDS ORDERED: methylPREDNISolone ACETATE 40 MG/ML VIAL ONE (20:10)
[2020-05-18 20:49] VITALS: BP 114/72
== END 2020-05-18 20:52 | disposition home or self-care (01) ==
LOC: ED 12:52
DX: N93.8 Other specified abnormal uterine and vaginal bleeding (principal); Z97.5 Presence of (intrauterine) contraceptive device
CPT/HCPCS: 36415; 76830; 76856; 80053; 81001; 81025; 83690; 85025; 96372; 99284; J1050; 81003; 87086

== ENCOUNTER 2023-01-30 08:00 | Outpatient (CLI) | payer OTHER ==
--- NOTE | 2023-01-30 18:03 | XRAY Report ---
PROCEDURE: Shoulder 3 View RT INDICATIONS: STRAIN OF RIGHT SHOULDER TECHNIQUE: 3 views of the shoulder were acquired. COMPARISON: None. FINDINGS: Bones: No fractures or dislocations. No suspicious bony lesions. Visualized ribs appear intact. Mild AC joint hypertrophy. Soft tissues: No suspicious soft tissue calcifications. IMPRESSION: No acute bony abnormality. If pain persists with conservative management, consider repeat radiographs in 10-14 days or cross-sectional imaging. Reviewed by: Fredy Hudson MD on 01/30/2023 6:02 PM PDT Approved by: Fredy Hudson MD on 01/30/2023 6:02 PM PDT Station ID: [id number]
== END 2023-01-30 23:59 | disposition home or self-care (01) ==
LOC: DI.S 08:00
PROVIDERS: ATTEND Emergency Medicine
DX: S46.011A Strain of muscle(s) and tendon(s) of the rotator cuff of right shoulder, initial encounter (principal)